=== PATIENT | male | born 1955 ===

== ENCOUNTER 2018-05-02 05:55 | Day surgery (SDC) | payer MEDICARE, MEDICAID ==
--- NOTE | 2018-05-01 17:45 | Pre-op HX & Phy Repo 2 SIG ---
DATE OF ADMISSION: 05/01/2018 DATE OF SURGERY: 05/02/2018. PREOPERATIVE DIAGNOSIS: Nonclearing vitreous hemorrhage, right eye. BRIEF NOTE: This is the first [facility] admission for the patient, who is a very nice 62-year-old gentleman with a dense nonclearing hemorrhage in the right eye. His past ocular history is remarkable for prior laser treatment and intravitreal injections done by myself. He had a vitrectomy done elsewhere. Some time ago and subsequently developed no light perception vision secondary to what he states was an infection. He recently developed a cloud in the vision in the right eye and has a significant hemorrhage on that side. He is admitted for a vitrectomy on the right. PAST MEDICAL HISTORY: Remarkable for diabetes, hypertension, and renal failure. He is on dialysis. MEDICATIONS: Include aspirin 81 mg daily as well as benazepril and glipizide. ALLERGIES: He has no allergies. OCULAR EXAMINATION: Best vision at the time of admission was counting fingers at 5 feet in the right eye. No light perception in the left with pressure on the right of 16. The left showed a prosthesis. The anterior segment on the right showed a pinguecula, but was otherwise clear. There is a 2+ nuclear sclerotic cataract. Funduscopic examination showed clinically significant macular edema as well as a dense vitreous hemorrhage. The retina appeared significantly well lasered and flat. General physical examination will be done by Dr. Whitlock. ASSESSMENT: Dense vitreous hemorrhage, right eye. PLAN: The plan is to perform a pars plana vitrectomy with extensive Endolaser and Avastin on the right. The risks and benefits of surgery were gone over with the patient with potential infection, hemorrhage, glaucoma, and remote possibility of loss of the eye. The risk of anesthesia was discussed. The patient understands and consents to surgery, which will be performed on tomorrow morning. Joseph Yuan M.D. DR: KATJA JOB#: [id number] CC:
[~2018-05-02] VITALS: Ht 170.2 cm; Wt 95.0 kg
[2018-05-02] VITALS (10 sets, daily range): BP systolic 129–163; BP diastolic 69–80
[~2018-05-02 05:55] MED LIST: ATORVASTATIN CA20 MG ORAL; BENAZEPRIL HCL10 MG ORAL; CEPHALEXIN500 MG ORAL; GABAPENTIN100 MG ORAL; GLIPIZIDE5 MG ORAL; NEPHROVITE1 TAB ORAL; RENVELA0.8 GM ORAL; SENSIPAR30 MG ORAL
[2018-05-02] MEDS ORDERED: Pred Forte 1% Opth Susp 1ml RIGHT EYE SCH (06:00)
[2018-05-02] MEDS ORDERED: Avastin 10mg Inj IVITRE ONE (06:00)
[2018-05-02] MEDS: Flurbiprofen 0.03% Opth Sol 2.5ml RIGHT EYE SCH ×3 (06:20→06:52)
[2018-05-02] MEDS: Phenylephrine 2.5% Op 2ml Soln RIGHT EYE SCH ×3 (06:20→06:52)
[2018-05-02] MEDS: Cyclopentolate 1% Opth Sol 2ml RIGHT EYE SCH ×3 (06:20→06:52)
[2018-05-02] MEDS: Vigamox Opth Soln 3ml RIGHT EYE SCH ×3 (06:20→06:52)
[2018-05-02] MEDS ORDERED: EPINEPHrine 1mg/1ml Amp ONE (06:57)
[2018-05-02] MEDS ORDERED: Dexamethasone 4mg/ml vial ONE (06:58)
[2018-05-02] MEDS ORDERED: Lidocaine 2% MPF 5ml Vial INJ ONE (06:58)
[2018-05-02] MEDS ORDERED: Pred Forte 1% Opth Susp 1ml ONE (06:58)
[2018-05-02] MEDS ORDERED: Kenalog-10 5ml Inj ONE (06:58)
[2018-05-02] MEDS ORDERED: BSS 500ml btl ONE (06:58)
[2018-05-02] MEDS ORDERED: Kenalog-40 1ml Vial ONE (06:58)
[2018-05-02] MEDS ORDERED: Bupivacaine 0.75% 30ml vial INJ ONE (06:59)
[2018-05-02] MEDS ORDERED: Tetracaine 0.5% Opth 4ml Soln ONE (06:59)
[2018-05-02] MEDS ORDERED: Povidone-Iodine 5% opth solution ONE (06:59)
[2018-05-02] MEDS ORDERED: BSS 15ml BTL ONE (06:59)
[2018-05-02] MEDS ORDERED: Sodium Hyaluronate 10 mg/ml 0.85ml ONE (07:00)
[2018-05-02] MEDS ORDERED: Maxitrol Opth Oint 3.5gm ONE (07:00)
[2018-05-02 07:07] LABS: ANION GAP 12 mmol/L (5-15); BLOOD UREA NITROGEN 42 mg/dL (7-18); CALCIUM 10.2 MG/DL (8.5-10.1); CARBON DIOXIDE 27 MMOL/L (21-32); CHLORIDE 97 MMOL/L (98-107); CREATININE 8.4 MG/DL (0.55-1.30); POTASSIUM 4.7 MMOL/L (3.5-5.1); SODIUM 136 MMOL/L (136-145)
[2018-05-02 07:09] LABS: BASOPHILS % (AUTO) 0.8 % (0.0-2.0); EOSINOPHILS % (AUTO) 2.3 % (0.0-3.0); HEMATOCRIT 33.7 % (42.0-52.0); HEMOGLOBIN 10.9 G/DL (14.2-18.0); LYMPHOCYTES % (AUTO) 17.3 % (20.0-45.0); MEAN CORPUSCULAR VOLUME 100 FL (80-99); MONOCYTES % (AUTO) 9.8 % (1.0-10.0); NEUTROPHILS % (AUTO) 69.7 % (45.0-75.0); PLATELET COUNT 304 K/UL (150-450); RED BLOOD COUNT 3.39 M/UL (4.70-6.10); RED CELL DISTRIBUTION WIDTH 13.1 % (11.6-14.8); WHITE BLOOD COUNT 8.7 K/UL (4.8-10.8)
[2018-05-02] MEDS ORDERED: Midazolam 2mg/2ml Inj ONE (07:22)
[2018-05-02] MEDS ORDERED: fentaNYL 100 mcg/2 mL IV ONE (07:23)
--- NOTE | 2018-05-02 07:30 | Pre-Procedure Note/Attestation ---
Pre-Procedure Note/Attestation Complete Prior to Procedure Planned Procedure: right Procedure Narrative: PPV, endolaser, Avastin injection Right eye Indications for Procedure Pre-Operative Diagnosis: Clouds in vision Right eye Attestation I attest that I discussed the nature of the procedure; its benefits; risks and complications; and alternatives (and the risks and benefits of such alternatives ), prior to the procedure, with the patient (or the patient's legal order entry representative). I attest that, if there was a reasonable possibility of needing a blood transfusion, the patient (or the patient's legal order entry representative) was given the [facility] standardized written summary, pursuant to the [place] D[place] Blood Safety Act ([place] Health and Safety Code # 1645, as amended). I attest that I re-evaluated the patient just prior to the surgery and that there has been no change in the patient's H&P, except as documented below: FAMILIA BAILEY May 02, 2018 07:29
--- NOTE | 2018-05-02 07:33 | Anethesia Preoperative Eval ---
Anesthesia Pre-op PMH/ROS General Date of Evaluation: May 02, 2018 Time of Evaluation: 07:24 Anesthesiologist: Randa Whitney CRNA ASA Score: ASA 3 Mallampati Score Class I : Soft palate, uvula, fauces, pillars visible Class II: Soft palate, uvula, fauces visible Class III: Soft palate, base of uvula visible Class IV: Only hard plate visible Mallampati Classification: Class III Surgeon: Lissy Diagnosis: Vitreous hemorrhage Surgical Procedure: RIGHT eye pars plana vitrectomy, membrane peel Social History: alcohol use - Quit Family History: no anesthesia problems Allergies: Coded Allergies: No Known Allergies (Unverified , 05/02/18) Medications: see eMAR Past Medical History Cardiovascular: Reports: HTN, other - Hypercholesterolemia; Denies: CAD, CA, valve dz, arrhythmia Pulmonary: Reports: other - Heavy snoring without apnea Gastrointestinal/Genitourinary: Reports: ESRD, other - Hemodialysis qT, TH, Sat LD 05/01/18 (+) AV shunt RIGHT arm; Denies: GERD, CRI Neurologic/Psychiatric: Denies: dementia, CVA, depression/anxiety, TIA, other Endocrine: Reports: DM; Denies: hypothyroidism, steroids, other HEENT: Reports: other - LEFT eye enucleation; diabetic retinopathy; Denies: cataract (L), cataract (R), glaucoma, IONE (L), IONE (R) Hematology/Immune: Denies: anemia, DVT, bleeding disorder, other Musculoskeletal/Integumentary: Denies: OA, RA, DJD, DDD, edema, other Other: obesity PMH Narrative: 62 yo male with hx of diabetes, ESRD, dialysis dependent, here for vitreous hemorrhage, plan for pars plana vitrectomy RIGHT eye PSxH Narrative: Prior anesthetics for AV fistula and enucleation Anesthesia Pre-op Phys. Exam Physician Exam Last Vital Signs Date Time Temp Pulse Resp B/P (MAP) Pulse Ox O2 Delivery O2 Flow Rate FiO2 05/02/18 07:01 Room Air 05/02/18 06:48 98.6 71 18 136/73 (94) 97 98.6 Constitutional: NAD Neurologic: CN 2-12 intact Cardiovascular: RRR Respiratory: CTA Gastrointestinal: S/NT/ND Airway Exam Mallampati Score: Class III MO: full TMD: > 3 FB ROM: full Teeth: broken Dentures: no upper, no lower Anesthesia Pre-op A/P Labs Hematology Test 05/02/18 06:30 White Blood Count 8.7 K/UL (4.8-10.8) Red Blood Count 3.39 M/UL (4.70-6.10) L Hemoglobin 10.9 G/DL (14.2-18.0) L Hematocrit 33.7 % (42.0-52.0) L Mean Corpuscular Volume 100 FL (80-99) H Mean Corpuscular Hemoglobin 32.2 PG (27.0-31.0) H Mean Corpuscular Hemoglobin Concent 32.3 G/DL (32.0-36.0) Red Cell Distribution Width 13.1 % (11.6-14.8) Platelet Count 304 K/UL (150-450) Mean Platelet Volume 5.2 FL (6.5-10.1) L Neutrophils (%) (Auto) 69.7 % (45.0-75.0) Lymphocytes (%) (Auto) 17.3 % (20.0-45.0) L Monocytes (%) (Auto) 9.8 % (1.0-10.0) Eosinophils (%) (Auto) 2.3 % (0.0-3.0) Basophils (%) (Auto) 0.8 % (0.0-2.0) Chemistry Test 05/02/18 06:33 Sodium Level 136 MMOL/L (136-145) Potassium Level 4.7 MMOL/L (3.5-5.1) Chloride Level 97 MMOL/L (98-107) L Carbon Dioxide Level 27 MMOL/L (21-32) Anion Gap 12 mmol/L (5-15) Blood Urea Nitrogen 42 mg/dL (7-18) H Creatinine 8.4 MG/DL (0.55-1.30) H Estimat Glomerular Filtration Rate 6.5 mL/min (>60) Glucose Level 120 MG/DL (74-106) H Calcium Level 10.2 MG/DL (8.5-10.1) H Studies Pre-op Studies: EKG - 05/02/18: NSR with sinus arrhythmia HR 73 Risk Assessment & Plan Assessment: Obese elderly gentleman, prior eye surgery here for vitreous hemorrhage Plan: LMA GA per surgeons request Status Change Before Surgery: No Randa Whitney CRNA May 02, 2018 07:33
[2018-05-02] MEDS ORDERED: Norco 5mg/325mg tab ORAL PRN (07:39)
[2018-05-02] MEDS ORDERED: Propofol 200mg/20ml IV ONE (07:43)
--- NOTE | 2018-05-02 08:52 | Brief Operative Note ---
Immediate Post Operative Note Operative Note Chief Complaint: Clouds in vision Right eye Pre-op Diagnosis: Non-clearing vitreous hemorrhage Right eye Procedure: PPV, endolaser (1545 spots), Avastin injection 1.25mg Right eye Post-op Diagnosis: same as pre-op Surgeon: raudel Anesthesiologist: Randa Whitney CNA Anesthesia: general Specimen: none Complications: none Condition: stable Fluids: per anesthesia Estimated Blood Loss: none Drains: none Implant(s) used?: No FAMILIA BAILEY May 02, 2018 08:52
--- NOTE | 2018-05-02 12:37 | Immediate Post-Op Evaluation ---
Immediate Post-Op Evalulation Immediate Post-Op Evalulation Procedure: Pars plana vitrectomy, membrane peeling RIGHT eye Date of Evaluation: May 02, 2018 Time of Evaluation: 08:51 IV Fluids: LR 200 ml Estimated Blood Loss: minimal Blood Pressure Systolic: 148 Blood Pressure Diastolic: 80 Pulse Rate: 89 Respiratory Rate: 20 O2 Sat by Pulse Oximetry: 98 Temperature (Fahrenheit): 97.4 Pain Score (1-10): 0 Nausea: No Vomiting: No Complications none noted Patient Status: awake, reacts, patent Hydration Status: adequate Given Within 1 Hr of Incision: Randa Ng CRNA May 02, 2018 12:37
--- NOTE | 2018-05-02 13:19 | 48 Hour Post Anesthesia Eval ---
Post Anesthesia Evaluation Procedure: Pars plana vitrectomy, membrane peeling RIGHT eye Date of Evaluation: May 02, 2018 Time of Evaluation: 12:30 Blood Pressure Systolic: 129 0: 74 Pulse Rate: 89 Respiratory Rate: 20 Temperature (Fahrenheit): 97.3 O2 Sat by Pulse Oximetry: 98 Airway: patent Nausea: No Vomiting: No Pain Intensity: 0 Hydration Status: adequate Cardiopulmonary Status: Stable Mental Status/LOC: patient returned to baseline Follow-up Care/Observations: none Post-Anesthesia Complications: none Follow-up care needed: ready to discharge Randa Whitney CRNA May 02, 2018 13:19
--- NOTE | 2018-05-02 15:43 | Cardiology Report ---
APPROVED REPORT EKG Measurement Heart [id number] Normal sinus rhythm with sinus arrhythmia Normal ECG
--- NOTE | 2018-05-02 17:45 | Operative Note - Dictated ---
DATE OF OPERATION: 05/02/2018 PREOPERATIVE DIAGNOSIS: Nonclearing vitreous hemorrhage, right eye. POSTOPERATIVE DIAGNOSIS: Nonclearing vitreous hemorrhage, right eye. PROCEDURES: 1. Pars plana vitrectomy. 2. Endolaser. 3. Avastin injection, right eye. SURGEON: Joseph Yuan M.D. HEALTH SERVICES COORDINATOR: None. ANESTHESIA: LMA General. ANESTHESIOLOGIST: Randa Whitney CRNA. JUSTIFICATION FOR SURGERY: This 62-year-old gentleman with a long history of diabetes, developed a nonclearing vitreous hemorrhage of his only functioning eye. He was admitted for surgery. BRIEF NOTE: The patient was brought to the operative room, placed on OR table in supine position. After time-out was performed and agreed upon by the staff and initial monitoring secured by Dr. Whitney, LMA general anesthesia was induced. Retrobulbar and Van Lint blocks were then given in the standard way to limit the need for intraoperative anesthetic and limit postoperative pain. The patient was then prepped and draped in a normal manner. A lid speculum inserted into the right eye. Using a 23-gauge trocar system, cannulas were placed in all except infranasal quadrant. Infusion secured inferotemporally. Vitrectomy was begun posterior to the lens taking care to avoid contact. A central core vitrectomy was done followed by peripheral vitrectomy leaving a small vitreous skirt. The posterior hyaloid had previously detached and this was removed. Blood on the surface of the retina was gently flushed clear. The retina was noted to be all attached with no significant traction. The endolaser was brought to the eye and a power of 0.42 diaz and a duration of 0.2 seconds, a total of 1545 lesions were applied in a broad band extending from just posterior to the equator out to near the ora joy. This went without complication. Scleral depression was then performed and no peripheral breaks, tears, or detachments were seen. The two superior cannulas were then removed and after the wound was cleared of vitreous with the cutter, a single suture of 8-0 Vicryl was used to close each. Overlying conjunctiva superonasally was closed with a buried knot of the same suture. The infusion cannula was then disconnected and through this cannula, 1.25 mg of Avastin was injected. The eye was reinflated and this cannula also removed. After clearing with the vitreous cutter, the wound was similarly closed with 8-0 Vicryl. Subconjunctival Decadron and gentamicin were then injected inferiorly and atropine drops, prednisolone acetate drops, Vigamox drops, and Maxitrol ointment were subsequently instilled. The eye was patched and shielded and the patient was taken to recovery in excellent condition. There were no complications. Joseph Yuan M.D. DR: SHANNON JOB#: [id number] CC: Joseph Yuan M.D.; Fax#: [phone] [facility]
== END 2018-05-02 10:15 | disposition home or self-care (01) ==
LOC: SUR 05:55
DX: H43.11 Vitreous hemorrhage, right eye (principal); H11.151 Pinguecula, right eye; H25.11 Age-related nuclear cataract, right eye; E11.311 Type 2 diabetes mellitus with unspecified diabetic retinopathy with macular edema; E11.22 Type 2 diabetes mellitus with diabetic chronic kidney disease; I12.0 Hypertensive chronic kidney disease with stage 5 chronic kidney disease or end stage renal disease; N18.6 End stage renal disease; Z99.2 Dependence on renal dialysis; E07.9 Disorder of thyroid, unspecified; E11.40 Type 2 diabetes mellitus with diabetic neuropathy, unspecified; E78.00 Pure hypercholesterolemia, unspecified; E66.9 Obesity, unspecified; Z68.32 Body mass index [BMI] 32.0-32.9, adult; Z79.82 Long term (current) use of aspirin; Z90.01 Acquired absence of eye
CPT/HCPCS: 36415; 67039; 80048; 82962; 85025; 93005; J0171; J1100; J2250; J2704; J3470; J3490; J9035; 94003; 94150